=== PATIENT | female | born 1930 | race Asian ===

== ENCOUNTER 2016-04-20 06:13 | Inpatient (IN) | payer MEDICARE, BC ==
[~2016-04-20] VITALS: Ht 160 cm; Wt 57.8 kg
[~2016-04-20 06:13] MED LIST: ASPIRIN E.C. 8181 MG PO; CALCIUM CITRAT200 MG PO; COZAAR50 MG PO; FISH OIL1 IU PO; ISORDIL 20MG20 MG PO; MULTI-VITAMIN1 CTB PO; PLAVIX 75MG TAB75 MG PO; SYNTHROID0.075 MG/T PO; TENORMIN50 MG PO; VYTORIN 10 MG-41 TAB PO
[2016-04-20 06:44] LABS: BASO % 0.3 % (0.0-2.0); EOS # 0.1 (0.0-0.7); EOS % 1.5 % (0-4.0); GRAN # 4.2 (1.4-6.5); GRAN % 57.8 % (42.2-75.2); HEMATOCRIT 41.9 % (37.0-47.0); HEMOGLOBIN 13.3 g/dl (12.5-16.0); LYMPH # 2.3 (1.2-3.4); LYMPH % 32.1 % (20.0-51.0); MEAN CELL VOLUME 91 fl (80.0-100.0); MEAN CORPUSCULAR HEMOGLOBIN 29 pg (27.0-31.0); MEAN CORPUSCULAR HGB CONC 32 g/dl (33.0-37.0); MEAN PLATELET VOLUME 11.3 fl (7.4-10.4); MONO # 0.6 (0.1-0.6); PLATELET COUNT 192 K/mm3 (130-400); RED BLOOD COUNT 4.61 M/mm3 (4.10-5.30); REDCELL DISTRIBUTION WIDTH-CV 13.4 % (11.5-14.5); WHITE BLOOD COUNT 7.3 K/mm3 (4.8-10.8)
[2016-04-20 06:54] LABS: ANION GAP 12 mmol/L (7-16); BLOOD UREA NITROGEN 20 mg/dL (7-17); CALCIUM 9.3 mg/dL (8.4-10.2); CARBON DIOXIDE 28 mmol/L (22-30); CHLORIDE 102 mmol/L (98-107); CREATININE, serum 0.71 mg/dL (0.52-1.25); GLUCOSE 138 mg/dL (74-106); POTASSIUM 3.7 mmol/L (3.4-5.0); SODIUM 141 mmol/L (137-145)
[2016-04-20 07:07] LABS: B-TYPE NATRIURETIC PEPTIDE 346 pg/mL (0-450); TROPONIN-I < 0.012 ng/mL (0.000-0.034)
[2016-04-20] MEDS ORDERED: JANUMET 1000 MG1 TA1 PO (09:49)
[2016-04-20 10:30] VITALS: BP 142/81; PULSE 101; TEMP 98.1
[2016-04-20] MEDS ORDERED: ISORDIL TITRADO30 MG (10:45)
[2016-04-20] MEDS ORDERED: PRILOSEC 20MG20 MG PO (10:57)
[2016-04-20] MEDS ORDERED: NITROSTAT0.3 MG SL (10:58)
[2016-04-20 12:24] VITALS: BP 137/95; PULSE 117; TEMP 98.3
[2016-04-20 17:47] VITALS: BP 154/93; PULSE 115; TEMP 98.3
[2016-04-20 20:47] VITALS: BP 127/70; PULSE 80; TEMP 97.9
[2016-04-21 03:26] VITALS: BP 121/66; PULSE 78; TEMP 98.1
[2016-04-21 08:19] LABS: BASO % 0.4 % (0.0-2.0); EOS # 0.1 (0.0-0.7); EOS % 1.1 % (0-4.0); GRAN # 2.8 (1.4-6.5); GRAN % 51.9 % (42.2-75.2); HEMATOCRIT 40.5 % (37.0-47.0); HEMOGLOBIN 13.1 g/dl (12.5-16.0); LYMPH # 2.1 (1.2-3.4); LYMPH % 38.2 % (20.0-51.0); MEAN CELL VOLUME 90 fl (80.0-100.0); MEAN CORPUSCULAR HEMOGLOBIN 29 pg (27.0-31.0); MEAN CORPUSCULAR HGB CONC 32 g/dl (33.0-37.0); MEAN PLATELET VOLUME 12.3 fl (7.4-10.4); MONO # 0.4 (0.1-0.6); MONO % 8.2 % (1.7-9.3); PLATELET COUNT 195 K/mm3 (130-400); RED BLOOD COUNT 4.51 M/mm3 (4.10-5.30); REDCELL DISTRIBUTION WIDTH-CV 13.2 % (11.5-14.5); WHITE BLOOD COUNT 5.4 K/mm3 (4.8-10.8)
[2016-04-21 08:20] LABS: ANION GAP 8 mmol/L (7-16); BLOOD UREA NITROGEN 18 mg/dL (7-17); CALCIUM 8.7 mg/dL (8.4-10.2); CARBON DIOXIDE 25 mmol/L (22-30); CHLORIDE 107 mmol/L (98-107); CREATININE, serum 0.61 mg/dL (0.52-1.25); GLUCOSE 80 mg/dL (74-106); POTASSIUM 3.7 mmol/L (3.4-5.0); SODIUM 140 mmol/L (137-145)
[2016-04-21 08:49] LABS: TROPONIN-I < 0.012 ng/mL (0.000-0.034)
[2016-04-21 09:42] VITALS: BP 101/68; PULSE 89; TEMP 98.1
[2016-04-21 12:27] VITALS: BP 127/69; PULSE 98; TEMP 98.2
[2016-04-21 16:19] VITALS: BP 134/77; PULSE 71; TEMP 98.7
[2016-04-21 17:07] VITALS: BP 134/77; PULSE 71; TEMP 98.7
== END 2016-04-21 17:38 | disposition short-term general hospital (02) | DRG 310 ==
LOC: COL.ER 06:13 → MEDICAL 08:01
PROVIDERS: Emergency Medicine; Family Medicine; Nurse Practitioner Family
DX: I48.92 Unspecified atrial flutter (principal); I10 Essential (primary) hypertension; I25.10 Atherosclerotic heart disease of native coronary artery without angina pectoris; Z95.5 Presence of coronary angioplasty implant and graft; E11.9 Type 2 diabetes mellitus without complications
CPT/HCPCS: 99223-AI; 99231-AI; 99239; G0378; J1650; J7030; Q9967

== ENCOUNTER → 2017-02-22 | Outpatient (CLI) | payer MEDICARE, BC ==
[~2017-02-22] MED LIST changes: +ISORDIL TITRADO30 MG; +JANUMET 1000 MG1 TA1 PO; +NITROSTAT0.3 MG SL; +PRILOSEC 20MG20 MG PO
== END ==
LOC: MC.RAD 13:40
DX: Z12.31 Encounter for screening mammogram for malignant neoplasm of breast (principal)

== ENCOUNTER → 2018-02-23 | Outpatient (CLI) | payer MEDICARE, BC | LOC: MC.RAD 11:40 | DX: Z12.31 Encounter for screening mammogram for malignant neoplasm of breast (principal) ==

== ENCOUNTER 2018-09-12 02:40 | Emergency (ER) | payer MEDICARE, BC ==
[~2018-09-12] VITALS: Ht 160 cm; Wt 59.1 kg
[~2018-09-12 02:40] MED LIST changes: -ISORDIL TITRADO30 MG; +ISORDIL TITRADO30 MG PO
[2018-09-12 02:45] VITALS: TEMP 97.9
[2018-09-12] MEDS ORDERED: SYNTHROID0.1 MG/TAB PO (02:54)
[2018-09-12] MEDS ORDERED: ELIQUIS 2.5 PO (02:55)
[2018-09-12] MEDS ORDERED: PACERONE100 MG PO (02:56)
[2018-09-12] MEDS ORDERED: PRILOSEC 20MG20 MG PO (02:56)
[2018-09-12] MEDS ORDERED: JANUMET 1000 MG1 TA1 PO (03:00)
[2018-09-12 03:07] LABS: BASO % 0.3 % (0.0-2.0); EOS # 0.1 (0.0-0.7); EOS % 1.6 % (0-4.0); GRAN # 3.7 (1.4-6.5); GRAN % 58.6 % (42.2-75.2); HEMATOCRIT 39.9 % (37.0-47.0); HEMOGLOBIN 12.9 g/dl (12.5-16.0); LYMPH # 1.9 (1.2-3.4); LYMPH % 29.5 % (20.0-51.0); MEAN CELL VOLUME 92 fl (80.0-100.0); MEAN CORPUSCULAR HEMOGLOBIN 30 pg (27.0-31.0); MEAN CORPUSCULAR HGB CONC 32 g/dl (33.0-37.0); MEAN PLATELET VOLUME 10.7 fl (7.4-10.4); MONO # 0.6 (0.1-0.6); MONO % 9.7 % (1.7-9.3); PLATELET COUNT 207 K/mm3 (130-400); RED BLOOD COUNT 4.34 M/mm3 (4.10-5.30); REDCELL DISTRIBUTION WIDTH-CV 13.6 % (11.5-14.5)
[2018-09-12 03:10] LABS: INR 1.2 (0.8-3.0); PROTHROMBIN TIME 14.2 SECONDS (9.7-12.8)
[2018-09-12] MEDS ORDERED: ASPIRIN 81M81 MG/TA2 PO (03:10)
[2018-09-12] MEDS ORDERED: LIPITOR20 MG PO (03:10)
[2018-09-12 03:15] LABS: ALANINE AMINOTRANSFERASE 14 U/L (9-52); ALBUMIN 4.1 gm/dL (3.5-5.0); ALKALINE PHOSPHATASE 81 U/L (50-136); ANION GAP 10 mmol/L (7-16); AST,SGOT 23 U/L (15-37); BILIRUBIN,TOTAL 0.4 mg/dL (0.0-1.0); BLOOD UREA NITROGEN 24 mg/dL (7-17); CALCIUM 9.4 mg/dL (8.4-10.2); CARBON DIOXIDE 28 mmol/L (22-30); CHLORIDE 104 mmol/L (98-107); CREATININE, serum 0.71 (0.52-1.25); GLUCOSE 100 mg/dL (74-106); POTASSIUM 4.1 mmol/L (3.4-5.0); SODIUM 142 mmol/L (137-145); TOTAL PROTEIN 6.8 gm/dL (6.4-8.2)
[2018-09-12 03:28] LABS: TROPONIN-I < 0.012 ng/mL (0.000-0.035)
[2018-09-12 05:53] VITALS: BP 154/76; PULSE 67
== END 2018-09-12 05:54 | disposition home or self-care (01) ==
LOC: COL.ER 02:40
PROVIDERS: Emergency Medicine
DX: R07.89 Other chest pain (principal); E11.9 Type 2 diabetes mellitus without complications; I48.91 Unspecified atrial fibrillation; E78.5 Hyperlipidemia, unspecified; E03.9 Hypothyroidism, unspecified; Z95.9 Presence of cardiac and vascular implant and graft, unspecified; Z79.84 Long term (current) use of oral hypoglycemic drugs; Z79.82 Long term (current) use of aspirin

== ENCOUNTER 2019-04-28 04:57 | Observation (INO) | payer MEDICARE, BC ==
[2019-04-28] VITALS (7 sets, daily range): BP systolic 92–153; BP diastolic 53–70; PULSE 53–62; TEMP 97.1–97.8
[~2019-04-28] VITALS: Ht 160 cm; Wt 58.4 kg
[~2019-04-28 04:57] MED LIST changes: +ASPIRIN 81M81 MG/TA2 PO; +ELIQUIS 2.5 PO; +LIPITOR20 MG PO; +PACERONE100 MG PO; +SYNTHROID0.1 MG/TAB PO
[2019-04-28 05:32] LABS: BASO % 0.2 % (0.0-2.0); EOS # 0.1 (0.0-0.7); EOS % 1.6 % (0-4.0); GRAN # 3.1 (1.4-6.5); HEMATOCRIT 42.4 % (37.0-47.0); HEMOGLOBIN 13.2 g/dl (12.5-16.0); LYMPH # 2.6 (1.2-3.4); LYMPH % 40.8 % (20.0-51.0); MEAN CELL VOLUME 93 fl (80.0-100.0); MEAN CORPUSCULAR HEMOGLOBIN 29 pg (27.0-31.0); MEAN CORPUSCULAR HGB CONC 31 g/dl (33.0-37.0); MEAN PLATELET VOLUME 11.1 fl (7.4-10.4); MONO # 0.6 (0.1-0.6); MONO % 9.2 % (1.7-9.3); PLATELET COUNT 208 K/mm3 (130-400); RED BLOOD COUNT 4.55 M/mm3 (4.10-5.30); REDCELL DISTRIBUTION WIDTH-CV 14.2 % (11.5-14.5)
[2019-04-28 05:34] LABS: INR 1.2 (0.8-3.0); PROTHROMBIN TIME 13.9 SECONDS (9.7-12.8)
[2019-04-28 05:39] LABS: ALANINE AMINOTRANSFERASE 26 U/L (9-52); ALBUMIN 4.2 gm/dL (3.5-5.0); ALKALINE PHOSPHATASE 119 U/L (50-136); ANION GAP 8 mmol/L (7-16); AST,SGOT 24 U/L (15-37); BILIRUBIN,TOTAL 0.4 mg/dL (0.0-1.0); BLOOD UREA NITROGEN 20 mg/dL (7-17); CALCIUM 9.2 mg/dL (8.4-10.2); CARBON DIOXIDE 27 mmol/L (22-30); CHLORIDE 108 mmol/L (98-107); GLUCOSE 99 mg/dL (74-106); POTASSIUM 4.1 mmol/L (3.4-5.0); SODIUM 143 mmol/L (137-145)
[2019-04-28 05:52] LABS: TROPONIN-I < 0.012 ng/mL (0.000-0.035)
--- NOTE | 2019-04-28 08:30 | NUR ---
Patient arrives to [facility] via ED cart and ambulates to bed with steady gait noted. VS and assessment as charted. Patient denies chest pain or pressure or arm or neck pain at this time. Patient noted to have Nitropaste to left chest still in place. Per report from ED RN patient was hypotensive with SBP in the 80s and DBP in the 40s. Nitro paste is removed at this time. Care assumed at this time.
--- NOTE | 2019-04-28 10:18 | NUR ---
Patient was jus brought in so I stopped to visit them. I visited, listened, and provided spiritual care.
--- NOTE | 2019-04-28 18:18 | NUR ---
Received report from MICU. Patient arrived too room [address], VSS and denied pain. Patient is here for observation this evening. Patient has received her evening meal and has family by her side. Will continue to monitor. Patient denies any questions at this time.
--- NOTE | 2019-04-28 18:21 | NUR ---
Patient eating her supper and family is by her side. She is independent with eating and is a SBA with ambulating to the bathroom.
--- NOTE | 2019-04-28 19:04 | NUR ---
Gave report to night nurse.
[2019-04-29 01:18] VITALS: BP 115/42; PULSE 57
[2019-04-29 04:27] VITALS: BP 117/84; PULSE 53; TEMP 97.8
--- NOTE | 2019-04-29 05:21 | NUR ---
PT HAS NOT HAD ANY ELEVATED BLOOD PRESSURES TONIGHT. DAUGHTER IN ROOM. PT'S DAUGHTER STATED SHE WOULD LIKE HER MOTHER TRANSFERED TO [place] UNDER THE CARE OF HER OWN CORE EXTRUDER. HOSPITALIST CLAUDE SPOKE WITH DAUGHTER ABOUT HER MOTHER'S CARE, MEDS ETC.
[2019-04-29 06:21] VITALS: BP 139/52; PULSE 53; TEMP 98.1
[2019-04-29 07:54] LABS: ANION GAP 6 mmol/L (7-16); BLOOD UREA NITROGEN 26 mg/dL (7-17); CALCIUM 8.8 mg/dL (8.4-10.2); CARBON DIOXIDE 27 mmol/L (22-30); CHLORIDE 108 mmol/L (98-107); CREATININE, serum 0.82 (0.52-1.25); GLUCOSE 99 mg/dL (74-106); POTASSIUM 4.2 mmol/L (3.4-5.0); SODIUM 141 mmol/L (137-145)
[2019-04-29 08:07] LABS: MAGNESIUM 1.9 mg/dL (1.6-2.3); TROPONIN-I < 0.012 ng/mL (0.000-0.035)
[2019-04-29 08:24] VITALS: BP 131/49; PULSE 57; TEMP 97.6
--- NOTE | 2019-04-29 09:07 | NUR ---
Patient's daughter stayed the night and is currently with patient. Patient is resting in her bed at this time, call light in reach and slip proof socks on. Patient reports no pain over the evening. Patient ate small amount of breakfast this AM. Will continue to monitor.
[2019-04-29] MEDS ORDERED: ISORDIL TITRADO30 MG PO (09:26)
[2019-04-29] MEDS ORDERED: PRINIVIL5 MG PO (09:26)
[2019-04-29] MEDS ORDERED: APRESOLINE 10MG10 MG PO (09:27)
[2019-04-29 09:53] VITALS: BP 115/48; PULSE 58; TEMP 97.6
--- NOTE | 2019-04-29 10:32 | NUR ---
Removed Right AC INT, patient tolerated well.
--- NOTE | 2019-04-29 10:33 | NUR ---
Patient Health Summary, Discharge Summary, and Home Meds printed and reviewed with patient and daughter. Stressed importance of follow up appointments. Reviewed medications and pharmacy gave daughter of patient one dose of 30 mg Isodril for patient to be given this evening. Tomorrow she will be restarting her extended release Isodril that she was taking prior to being admitted to the hospital. Belongings gathered by Georges including clothing and phone and misc. items. Patient transported via wheelchair by Georges and seatbelted for ride home. Patient and daughter denied questions.
== END 2019-04-29 11:10 | disposition home or self-care (01) ==
LOC: COL.ER 04:57 → IMCU 05:58 → JCC 16:45
PROVIDERS: Internal Medicine; ADMIT Emergency Medicine
DX: I16.0 Hypertensive urgency (principal); E11.9 Type 2 diabetes mellitus without complications; I25.10 Atherosclerotic heart disease of native coronary artery without angina pectoris; E03.9 Hypothyroidism, unspecified; I10 Essential (primary) hypertension; Z88.5 Allergy status to narcotic agent; Z88.8 Allergy status to other drugs, medicaments and biological substances; Z95.5 Presence of coronary angioplasty implant and graft; Z79.82 Long term (current) use of aspirin; Z79.01 Long term (current) use of anticoagulants; Z79.84 Long term (current) use of oral hypoglycemic drugs
CPT/HCPCS: G0378; J2405; J3010; J7030

== ENCOUNTER 2020-11-27 04:41 | Emergency (ER) | payer MEDICARE, BC ==
[~2020-11-27] VITALS: Ht 160 cm; Wt 54.5 kg
[~2020-11-27 04:41] MED LIST changes: +APRESOLINE 10MG10 MG PO; +PRINIVIL5 MG PO
[2020-11-27 04:53] VITALS: TEMP 97.9
[2020-11-27 05:25] LABS: BASO % 0.1 % (0.0-2.0); EOS # 0.1 (0.0-0.7); EOS % 0.9 % (0-4.0); GRAN # 5.2 (1.4-6.5); GRAN % 69.9 % (42.2-75.2); HEMATOCRIT 42.6 % (37.0-47.0); HEMOGLOBIN 13.3 g/dl (12.5-16.0); LYMPH # 1.5 (1.2-3.4); LYMPH % 19.7 % (20.0-51.0); MEAN CELL VOLUME 94 fl (80.0-100.0); MEAN CORPUSCULAR HEMOGLOBIN 29 pg (27.0-31.0); MEAN CORPUSCULAR HGB CONC 31 g/dl (33.0-37.0); MEAN PLATELET VOLUME 10.8 fl (7.4-10.4); MONO # 0.7 (0.1-0.6); MONO % 9.1 % (1.7-9.3); PLATELET COUNT 240 K/mm3 (130-400); RED BLOOD COUNT 4.55 M/mm3 (4.10-5.30); REDCELL DISTRIBUTION WIDTH-CV 13.5 % (11.5-14.5)
[2020-11-27 05:32] LABS: INR 1.3 (0.8-3.0); PROTHROMBIN TIME 14.5 SECONDS (9.7-12.8)
[2020-11-27 05:34] LABS: PARTIAL THROMBOPLASTIN TIME 30.8 SECONDS (26.0-37.0)
[2020-11-27 05:45] LABS: ALANINE AMINOTRANSFERASE 28 U/L (0-55); ALBUMIN 3.9 gm/dL (3.4-4.8); ALKALINE PHOSPHATASE 113 U/L (0-750); ANION GAP 12 mmol/L; AST,SGOT 31 U/L (5-34); BILIRUBIN,TOTAL 0.4 mg/dL (0.2-1.2); BLOOD UREA NITROGEN 18 mg/dL (10-20); CALCIUM 9.7 mg/dL (8.4-10.2); CARBON DIOXIDE 23 mEq/L (23-31); CHLORIDE 107 mmol/L (98-107); CREATININE, serum 0.84 mg/dL (0.57-1.11); GLUCOSE 128 mg/dL (70-99); POTASSIUM 3.7 mmol/L (3.5-4.5); SODIUM 142 mmol/L (136-145); TOTAL PROTEIN 7.4 gm/dL (6.2-8.1)
[2020-11-27 05:52] LABS: TROPONIN-I < 0.010 ng/mL (0.00-0.033)
[2020-11-27 09:02] VITALS: BP 172/71; PULSE 62
== END 2020-11-27 09:02 | disposition short-term general hospital (02) ==
LOC: COL.ER 04:41
PROVIDERS: Student in an Organized Health Care Education/Training Program
DX: S06.5X9A Traumatic subdural hemorrhage with loss of consciousness of unspecified duration, initial encounter (principal); I16.0 Hypertensive urgency; R55 Syncope and collapse; I10 Essential (primary) hypertension; E03.9 Hypothyroidism, unspecified; E11.9 Type 2 diabetes mellitus without complications; I25.10 Atherosclerotic heart disease of native coronary artery without angina pectoris; Z95.9 Presence of cardiac and vascular implant and graft, unspecified; Z79.01 Long term (current) use of anticoagulants; Z79.899 Other long term (current) drug therapy; Z79.890 Hormone replacement therapy; Z79.82 Long term (current) use of aspirin; Z79.84 Long term (current) use of oral hypoglycemic drugs; W19.XXXA Unspecified fall, initial encounter; W22.8XXA Striking against or struck by other objects, initial encounter
CPT/HCPCS: J7168